=== PATIENT | female | born 1995 | race Caucasian/White ===

== ENCOUNTER 2017-01-17 10:14 | Outpatient (CLI) | payer OTHER ==
[~2017-01-17] VITALS: Ht 154.9 cm; Wt 90.9 kg
[2017-01-17] VITALS (7 sets, daily range): BP systolic 106–132; BP diastolic 57–78; PULSE 60–76; TEMP 98.9
[~2017-01-17 10:14] MED LIST: DEPO-PROVER400 MG/ML IM; PROAIR HFA0.09 MG/AC IH
[2017-01-17 17:04] LABS: CEREBROSPINAL TUBE #2; CSF APPEARANCE CLEAR; CSF COLOR COLORLESS; CSF POLYMORPHONUCLEAR 0 % (0-6)
== END 2017-01-17 13:39 | disposition home or self-care (01) ==
LOC: COL.RAD 10:14
PROVIDERS: Otolaryngology
DX: H93.A1 Pulsatile tinnitus, right ear (principal)